=== PATIENT | male | born 1995 | race Caucasian/White ===

== ENCOUNTER 2017-08-17 12:33 | Emergency (ER) | payer BC ==
[2017-08-17 14:33] VITALS: BP 156/79
--- NOTE | 2017-08-17 14:40 | UC ---
Abdominal Pain Male HPI - HPI Summary HPI Summary: 22 yo male with 2 day hx of fatigue and nausea no vomiting recent URI still with mild cough - History of Current Complaint Chief Complaint: UCGeneralIllness Stated Complaint: NAUSEAUS/FEVER/VOM Hx Obtained From: Patient Onset/Duration: Gradual Onset Severity Initially: Mild Severity Currently: Mild Pain Intensity: 0 Pain Scale Used: 0-10 Numeric Associated Signs And Symptoms: Positive: Nausea - Allergies/Home Medications Allergies/Adverse Reactions: Allergies Allergy/AdvReac Type Severity Reaction Status Date / Time eye drop medicine Allergy Unknown Uncoded 08/17/17 14:33 Reaction Details seasonal allergies Allergy Eyes Uncoded 08/17/17 14:33 Itchy/Swollen/Red/Watery PMH/Surg Hx/FS Hx/Imm Hx Previously Healthy: Yes - Surgical History Surgical History: None - Family History Known Family History: Positive: Hypertension - Social History Alcohol Use: Occasionally Substance Use Type: None Smoking Status (MU): Never Smoked Tobacco Review of Systems Constitutional: Fatigue Skin: Negative Eyes: Negative ENT: Negative Respiratory: Negative Cardiovascular: Negative Gastrointestinal: Nausea Genitourinary: Negative Motor: Negative Neurovascular: Negative Musculoskeletal: Negative Neurological: Negative Psychological: Negative Is Patient Immunocompromised?: No All Other Systems Reviewed And Are Negative: Yes Physical Exam Triage Information Reviewed: Yes Appearance: Well-Appearing, No Pain Distress, Well-Nourished Vital Signs: Initial Vital Signs Temp 98.6 F 08/17/17 14:27 Pulse 71 08/17/17 14:27 Resp 16 08/17/17 14:27 BP 156/79 08/17/17 14:27 Pulse Ox 100 08/17/17 14:27 Vital Signs Reviewed: Yes Eyes: Positive: Conjunctiva Clear ENT: Negative: Nasal congestion, Nasal drainage, Muffled voice, Hoarse voice Neck: Positive: Supple, Nontender, No Lymphadenopathy Respiratory: Positive: Normal breath sounds, No respiratory distress, No accessory muscle use, Respiratory distress Cardiovascular: Positive: RRR, No Murmur Abdomen Description: Positive: Nontender, No Organomegaly, Soft. Negative: CVA Tenderness (R), CVA Tenderness (L) Bowel Sounds: Positive: Present Musculoskeletal: Positive: ROM Intact, No Edema Neurological: Positive: Alert Psychological Exam: Normal Skin Exam: Normal Diagnostics - Laboratory Diagnostic Studies Completed/Ordered: GLUCOSE 87. UA normal Abd Pain Male Course/Dx - Differential Dx/Clinical Impression Provider Diagnoses: viral syndrome. elevated BP with dx off HTN Discharge - Sign-Out/Discharge Documenting (check all that apply): Discharge - Discharge Plan Condition: Stable Disposition: HOME Patient Education Materials: Viral Syndrome (ED) Referrals: [facility] [place] [facility] [Outside] (call this number for help in finding a local MD) Additional Instructions: your BP was a little high here and should be followed in week or months recheck for new or worsening symptoms or if not better in 3-4 days - Billing Disposition and Condition Condition: STABLE Disposition: HOME
== END 2017-08-17 15:15 | disposition home or self-care (01) ==
LOC: UCCORT 12:33
DX: B34.9 Viral infection, unspecified (principal); R53.83 Other fatigue; I10 Essential (primary) hypertension
CPT/HCPCS: 81003; 99201; G0463

== ENCOUNTER 2017-12-14 18:46 | Emergency (ER) | payer BC ==
[2017-12-14 19:08] VITALS: BP 154/88
--- NOTE | 2017-12-14 19:26 | UC ---
Laceration HPI - HPI Summary HPI Summary: 22 year old male presents with superficial laceration to right lower leg. States occurred 3 days ago while grinding metal. Has noted localized erythema at site of wound and is concerned of infection. Denies fever, chills, or purulent drainage. Tetanus UTD. - History Of Current Complaint Chief Complaint: UCSkin Stated Complaint: LAC ON RT LEG Time Seen by Provider: 12/14/17 19:16 Hx Obtained From: Patient Mechanism Of Injury: FB Potential Severity: Mild Pain Intensity: 0 Aggravating Factors: Nothing Full Body (No Head): 1 - <0.5 cm superficial laceration - Allergies/Home Medications Allergies/Adverse Reactions: Allergies Allergy/AdvReac Type Severity Reaction Status Date / Time eye drop medicine Allergy Unknown Uncoded 12/14/17 19:08 Reaction Details seasonal allergies Allergy Eyes Uncoded 12/14/17 19:08 Itchy/Swollen/Red/Watery PMH/Surg Hx/FS Hx/Imm Hx - Additional Past Medical History Additional PMH: non-contributory Previously Healthy: Yes - Surgical History Surgical History: None - Family History Known Family History: Positive: Hypertension - Social History Occupation: Unemployed Lives: With Family Alcohol Use: Occasionally Substance Use Type: None Smoking Status (MU): Never Smoked Tobacco - Immunization History Hx Tetanus, Diphtheria Vaccination: Yes - 1 week ago Review of Systems Constitutional: Negative Skin: Other - see HPI Neurovascular: Negative Musculoskeletal: Negative Neurological: Negative Is Patient Immunocompromised?: No All Other Systems Reviewed And Are Negative: Yes Physical Exam Triage Information Reviewed: Yes Appearance: Well-Appearing, No Pain Distress, Well-Nourished Vital Signs: Initial Vital Signs Temp 98.1 F 12/14/17 19:02 Pulse 84 12/14/17 19:02 Resp 16 12/14/17 19:02 BP 154/88 12/14/17 19:02 Pulse Ox 100 12/14/17 19:02 Vital Signs Reviewed: Yes Respiratory: Positive: No respiratory distress Cardiovascular: Positive: Pulses Normal, Brisk Capillary Refill Musculoskeletal Exam: Normal Neurological: Positive: Other: - sensation intact Skin: Positive: Other - <0.5 cm superficial laceration to right anterior lower leg. No FB noted. Localized erythema at wound margins. No induration, fluctuance , or discharge noted. Laceration Course/Dx - Course/Dx Course Of Treatment: 22 year old male with small, superficial laceration to right anterior lower leg that occurred 3 days ago while grinding metal. No FB observed. No signs of infection. Based on time from injury and benign exam recommend conservative treatment with wound care and watchful waiting. Return for any s/s of infection. - Differential Dx - Laceration/Wound Provider Diagnoses: superficial laceration right lower leg Discharge - Sign-Out/Discharge Documenting (check all that apply): Patient Departure - Discharge Plan Condition: Stable Disposition: HOME Patient Education Materials: Laceration (DC) Referrals: No Primary Care Phys,NOPCP [Primary Care Provider] - Additional Instructions: Keep the wound clean with soap and water. You may shower normally. Apply a thin layer of antibiotic ointment such as bacitracin to the wound and cover with a clean bandage. Change at least once a day or more often if dressing becomes wet or soiled. Return for any signs or symptoms of infection including fever greater than 100.5 F, increased pain, redness that spreads, swelling, or pus draining from the wound. - Billing Disposition and Condition Condition: STABLE Disposition: Home
== END 2017-12-14 19:34 | disposition home or self-care (01) ==
LOC: UCCORT 18:46
DX: S81.811A Laceration without foreign body, right lower leg, initial encounter (principal); W26.8XXA Contact with other sharp object(s), not elsewhere classified, initial encounter; Y93.9 Activity, unspecified; Y99.9 Unspecified external cause status
CPT/HCPCS: 99211; G0463

== ENCOUNTER 2018-08-25 19:37 | Emergency (ER) | payer BC ==
[2018-08-25 19:59] VITALS: BP 145/69
--- NOTE | 2018-08-25 20:13 | UC ---
Throat Pain/Nasal Joseph HPI - HPI Summary HPI Summary: 23-year-old male comes in with a chief complaint of sore throat for 3 days. Patient had sinusitis symptoms for at least 10 days and they started to go away and then his throat started hurting. Sinuses seem to have cleared out mostly. No recent fevers. Swallowing makes the pain worse. - History of Current Complaint Chief Complaint: UCGeneralIllness Stated Complaint: SORE THROAT Time Seen by Provider: 08/25/18 19:58 Pain Intensity: 4 - Allergies/Home Medications Allergies/Adverse Reactions: Allergies Allergy/AdvReac Type Severity Reaction Status Date / Time eye drop medicine Allergy Unknown Uncoded 08/25/18 20:00 Reaction Details seasonal allergies Allergy Eyes Uncoded 08/25/18 20:00 Itchy/Swollen/Red/Watery Home Medications: Home Medications Ascorbic Acid TAB* [Vitamin C TAB*] 1,000 mg PO DAILY 08/25/18 [History Confirmed 08/25/18] Zinc Sulfate CAP* [Zinc-220 CAP*] 220 mg PO DAILY 08/25/18 [History Confirmed ] PMH/Surg Hx/FS Hx/Imm Hx Previously Healthy: Yes - Surgical History Surgical History: None - Family History Known Family History: Positive: Hypertension - Social History Alcohol Use: Occasionally Substance Use Type: None Smoking Status (MU): Never Smoked Tobacco - Immunization History Hx Tetanus, Diphtheria Vaccination: Yes - 1 week ago Review of Systems All Other Systems Reviewed And Are Negative: Yes Constitutional: Positive: Negative Skin: Positive: Negative Eyes: Positive: Negative ENT: Positive: Sore Throat, Nasal Discharge, Sinus Congestion Respiratory: Positive: Negative Cardiovascular: Positive: Negative Gastrointestinal: Positive: Negative Motor: Positive: Negative Neurovascular: Positive: Negative Musculoskeletal: Positive: Negative Neurological: Positive: Negative Psychological: Positive: Negative Is Patient Immunocompromised?: No Physical Exam Triage Information Reviewed: Yes Appearance: No Pain Distress, Well-Nourished, Ill-Appearing - MILD Vital Signs: Initial Vital Signs Temp 98.0 F 08/25/18 19:53 Pulse 72 08/25/18 19:53 Resp 16 08/25/18 19:53 BP 145/69 08/25/18 19:53 Pulse Ox 100 08/25/18 19:53 Vital Signs Reviewed: Yes Eye Exam: Normal Eyes: Positive: Conjunctiva Clear ENT: Positive: Pharyngeal erythema, Nasal congestion, TMs normal, Tonsillar swelling - 2+; NO ARTI TONSILLAR ABSCESS, Tonsillar exudate, Uvula midline. Negative: Muffled voice, Hoarse voice Neck exam: Normal Neck: Positive: Supple Respiratory: Positive: Lungs clear, Normal breath sounds, No respiratory distress Cardiovascular: Positive: RRR Musculoskeletal Exam: Normal Musculoskeletal: Positive: Strength Intact, ROM Intact Neurological Exam: Normal Neurological: Positive: Alert, Muscle Tone Normal Psychological Exam: Normal Psychological: Positive: Age Appropriate Behavior Skin Exam: Normal Throat Pain/Nasal Course/Dx - Course Course Of Treatment: DISCUSSED VIRAL VERSES BACTERIAL INFECTION AND THE ROLE OF ANTIBIOTICS. THE PATIENT WISHES TO BE ON ANTIBIOTICS AT THIS TIME. - Differential Dx/Diagnosis Provider Diagnosis: Tonsillitis with exudate Discharge - Sign-Out/Discharge Documenting (check all that apply): Patient Departure All imaging exams completed and their final reports reviewed: No Studies - Discharge Plan Condition: Stable Disposition: HOME Prescriptions: Amoxicillin PO (*) [Amoxicillin 875 MG (*)] 875 mg PO BID #20 tab Patient Education Materials: Tonsillitis (ED) Referrals: [facility] [place] [facility] [Outside] Additional Instructions: FOLLOW UP WITH YOUR DOCTOR IF NOT COMPLETELY IMPROVED. GET REEVALUATED SOONER IF YOUR CONDITION WORSENS OR ANY QUESTIONS OR CONCERNS. - Billing Disposition and Condition Condition: STABLE Disposition: Home
== END 2018-08-25 20:19 | disposition home or self-care (01) ==
LOC: UCCORT 19:37
DX: J03.90 Acute tonsillitis, unspecified (principal)
CPT/HCPCS: 99212; G0463